=== PATIENT | male | born 1970 | race Caucasian/White ===

== ENCOUNTER 2018-02-05 10:38 | Emergency (ER) | payer MEDICAID ==
[~2018-02-05] VITALS: Ht 165.1 cm; Wt 75.0 kg
[~2018-02-05 10:38] MED LIST: ALBU6.7H INH; IPRA17I INH; LEVA500T33 PO; MEDR4PAK PO; PRED50 PO; VENTAER INH
[2018-02-05 10:39] VITALS: BP 160/62; PULSE 107; RESP 18; TEMP 98; O2SAT 96
--- NOTE | 2018-02-05 10:54 | PD ---
HPI Chief Complaint: Laceration/Skin Injury Time Seen by Provider: 10:48 Travel History International Travel<30 days: No Contact w/Intl Traveler<30days: No Traveled to known affect area: No History of Present Illness HPI 48-year-old male with no significant medical history presents emergency department for evaluation of laceration sustained to the bridge of the nose this morning around 5 AM when he had a trip and fall. Patient states he struck his face on the ground. He did not lose consciousness. He did brace himself but it was dark and he was uncertain of where he was going. He denies any focal deficits or weakness. He has had no episodes of nausea or vomiting. He reports moderate pain and aching of the nose. He thinks his nose is displaced. He has no other symptoms at this time to report [facility] Social History Alcohol Use: No Tobacco Use: No Substance Use: No Allergies-Medications (Allergen,Severity, Reaction): Coded Allergies: No Known Allergies (Unverified , 04/02/17) Reported Meds & Prescriptions Reported Meds & Active Scripts Active Ibuprofen 800 Mg Tab 800 Mg PO Q8H PRN Ventolin Hfa 18 GM Inh (Albuterol Sulfate) 90 Mcg/Act Aer 2 Puff INH Q4-6H PRN Atrovent HFA 12.9 GM Inh (Ipratropium [place]) 17 Mcg/Act Aer 2 Puff INH Q6HR PRN Review of Systems Except as stated in HPI: all other systems reviewed are Neg Physical Exam Narrative GENERAL: Well-nourished, well-developed male patient ambulatory and in no acute distress SKIN: Focused skin assessment warm/dry. 1 cm laceration on the nasal bridge. Well approximated. No active bleeding HEAD: Normocephalic. EYES: No scleral icterus. No injection or drainage. EOMI. Equal and reactive NECK: Supple, trachea midline. No JVD or lymphadenopathy. No cervical spine tenderness. CARDIOVASCULAR: Regular rate and rhythm without murmurs, gallops, or rubs. RESPIRATORY: Breath sounds equal bilaterally. No accessory muscle use. GASTROINTESTINAL: Abdomen soft, non-tender, nondistended. MUSCULOSKELETAL: No cyanosis, or edema. BACK: Nontender without obvious deformity. No CVA tenderness. Data Data Last Documented VS Vital Signs Date Time Temp Pulse Resp B/P (MAP) Pulse Ox O2 Delivery O2 Flow Rate FiO2 02/05/18 10:39 98.0 107 18 160/62 (94) [address] Facial Bones W/O Iv Cont (02/05/18 ) Ed Discharge Order (02/05/18 11:37) MDM Medical Decision Making Medical Screen Exam Complete: Yes Emergency Medical Condition: Yes Medical Record Reviewed: Yes Differential Diagnosis Fracture versus contusion versus dislocation versus sprain Narrative Course 48-year-old male presents emergency department for evaluation following a trip and fall. He does have a well approximated laceration to the nasal bridge. This is approximated using Steri-Strips. CT imaging is complete. Last Impressions Maxillofacial CT 02/05/18 0000 Signed Impressions: CONCLUSION: 1. Rightward nasal septal deviation, nasal bridge laceration and soft tissue s welling. There is a fracture seen in the right maxillary premolar on axial imag e 41 of series 2. 2. Nondisplaced nasal bone fracture suspected. Findings are discussed with the patient in my attending. He is encouraged to follow-up with oral maxillofacial surgeon. He agrees to return immediately with acute worsening symptoms. Procedures Procedure Narrative LACERATION LOCATION: Nasal bridge LENGTH: 1 cm NUMBER OF STITCHES/HINA: Steri-Strips REPAIR: The area of the laceration was prepped with Betadine and sterilely draped. The wound was copiously irrigated and explored without evidence of foreign body, tendon injury or neurovascular injury. The wound was closed using Steri-Strips]. This was a single layer repair. A sterile dressing was applied. The patient was advised to keep the dressing clean and dry. Patient tolerated the procedure well. Diagnosis Primary Impression: Nasal bone fracture Qualified Codes: S02.2XXA - Fracture of nasal bones, initial encounter for closed fracture Additional Impression: Tooth fracture Qualified Codes: S02.5XXA - Fracture of tooth (traumatic), initial encounter for closed fracture Referrals: Oral Maxillofacial Surgeon Primary Care Physician Patient Instructions: General Instructions, Nasal Fracture (ED) Additional Instructions: Ice to the affected area Follow up with oral maxillofacial surgery Return to ED with acute worsening of symptoms Med/Other Pt SpecificInfo: Prescription(s) given Scripts Ibuprofen (Ibuprofen) 800 Mg Tab 800 MG PO Q8H Y for Pain/Inflammation, #30 TAB 0 Refills Prov: Harriet Subramanian 02/05/18 Disposition: 01 DISCHARGE HOME Condition: Stable Harriet SubramanianP Feb 05, 2018 10:54
--- NOTE | 2018-02-05 11:30 | RADRPT ---
EXAM DATE: 02/05/2018 11:24 AM EDT AGE/SEX: 48 years / Male INDICATIONS: Tripped and fell, landed on face. Laceration to bridge of nose. CLINICAL DATA: This is the patient's initial encounter. Patient reports that signs and symptoms have been present for 1 day and indicates a pain score of 2/10. MEDICAL/SURGICAL HISTORY: None. None. RADIATION DOSE: 44.12 CTDI (mGy) COMPARISON: No prior exams available for comparison. TECHNIQUE: Contiguous images in the axial and coronal planes were obtained using helical multirow de tector technique. Using automated exposure control and adjustment of the mA and/or kV according to p atient size, radiation dose was kept as low as reasonably achievable to obtain optimal diagnostic hong lity images. FINDINGS: There is a nasal bone fracture identified, nondisplaced, nondepressed. There is mild soft tissue swel ling. Rightward nasal septal deviation. Paranasal sinuses are well aerated. There is an oblique fract ure lucency through the right maxillary premolar identified. CONCLUSION: 1. Rightward nasal septal deviation, nasal bridge laceration and soft tissue swelling. There is a fr acture seen in the right maxillary premolar on axial image 41 of series 2. 2. Nondisplaced nasal bone fracture suspected. Electronically signed by: Lavell Woods MD 02/05/2018 11:29 AM EDT
[2018-02-05] MEDS ORDERED: IBUP1TAB7 PO (11:42)
== END 2018-02-05 12:45 | disposition home or self-care (01) ==
LOC: NEPD 10:38
DX: S01.21XA Laceration without foreign body of nose, initial encounter (principal); S02.2XXA Fracture of nasal bones, initial encounter for closed fracture; S02.5XXA Fracture of tooth (traumatic), initial encounter for closed fracture; W01.0XXA Fall on same level from slipping, tripping and stumbling without subsequent striking against object, initial encounter
CPT/HCPCS: 12011; 70486